=== PATIENT | female | born 1940 | race Caucasian/White ===

== ENCOUNTER 2016-11-29 07:07 | Day surgery (SDC) | payer MEDICARE, OTHER ==
[~2016-11-29] VITALS: Ht 167.6 cm; Wt 59.0 kg
[~2016-11-29 07:07] MED LIST: BACTRIM DS1 TAB PO; BENADRYL 50MG C50 MG PO; FAMVIR500 MG PO; LORTAB 5/3255 MG PO; LOVASTATIN40 MG PO; MEDDOSEPAK PO; MULTI PO; NAMENDA1 TAB PO; NAPROSYN500 MG PO; [UNRECOGNIZED DRUG - REMARK]
[2016-11-29] MEDS ORDERED: PERCOCET 10/31 COMBO PO (10:55)
[2016-11-29 12:44] VITALS: BP 102/53
== END 2016-11-29 12:05 | disposition home or self-care (01) ==
LOC: ORM 07:07
PROVIDERS: ATTEND Orthopaedic Surgery
PROC: 0SBD4ZZ Excision of Left Knee Joint, Percutaneous Endoscopic Approach (ICD-10-PCS; principal; 2016-11-29)
DX: S83.252A Bucket-handle tear of lateral meniscus, current injury, left knee, initial encounter (principal); S83.242A Other tear of medial meniscus, current injury, left knee, initial encounter; M65.862 Other synovitis and tenosynovitis, left lower leg; M94.262 Chondromalacia, left knee; X58.XXXA Exposure to other specified factors, initial encounter